=== PATIENT | female | born 1970 | race Caucasian/White ===

== ENCOUNTER → 2023-12-01 15:33 | Outpatient (BNVA) | payer BC, SELFPAY | PROVIDERS: Visit Provider Internal Medicine Nephrology ==

== ENCOUNTER 2024-11-29 15:48 | Outpatient (AMB) | payer BC, SELFPAY ==
--- NOTE | 2024-11-29 16:01 | HO.NEPHOV_ITS ---
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 Ever since her medications have been optimized, her blood pressure has been at goal. She does not have any flank pain, urinary symptoms, pedal edema or hematuria. She does not have any headache, visual disturbances, chest pressure, shortness of breath, orthostatic symptoms. She does not take any [id number]-[id number] anti-inflammatories. She is compliant with her medications. She maintains good hydration. She has not lost any significant weight. There were no new active complaints at the time of this office visit. [facility] Medical History (Updated 12/02/23 @ 06:52 by Lv Cannon MD) Hypertension Family History Mother Hypertension Social History Alcohol intake: never Patient Tobacco Use Status: Never used Tobacco Review of Systems Const All systems reviewed & are unremarkable except as noted in HPI and below Physical Exam Vital Signs: Last Vital Signs Pulse 73 11/29/24 16:03 BP 130/80 11/29/24 16:03 Pulse Ox 98 11/29/24 16:03 Oxygen Delivery Method Room Air 11/29/24 16:03 BMI result Body Mass Index 35.6 Const General: comfortable and no acute distress Orientation/consciousness: patient oriented x3 HEENT Head: Yes normocephalic Mouth: Normal oral and palatal mucosa present Eyes EOM: EOMs intact bilaterally Neck Neck: Yes supple Resp Auscultation: clear to auscultation bilaterally Cardio Jugular venous distension: no JVD Rate: regular rate GI Palpation (GI): Soft to palpation Auscultation: normal bowel sounds General: Yes no CVA tenderness Back/Spine/Pelvis Back: no CVA tenderness Skin General skin exam: no rashes or lesions noted Neuro General: patient oriented x3 and moves all extremities Extrem General: Yes no pedal edema Results Reviewed Nephrology Results: No Data to Display Assessment & Plan Assessment & Plan (1) Renal artery stenosis: Code(s): I70.1 - Atherosclerosis of renal artery Category: Medical (2) Hypertension: Code(s): I10 - Essential (primary) hypertension Category: Medical Qualifiers: Hypertension type: renovascular hypertension Qualified Code(s): I15.0 - Renovascular hypertension Plan Kiki is known to have hypertension from renovascular etiology. Her blood pressure has been at goal ever since medications have been optimized. She has not lost any significant weight. She has not known to have any renal dysfunction or proteinuria. She has no orthostasis. She maintains good hydration. She is quite active. I ordered follow-up blood work and urine studies. I intend to do a Doppler of her renal arteries with time in follow-up. She will need a lipid profile checked. I answered all questions. Follow-up appointment given. Orders: Orders Blood Urea Nitrogen 1 Year I15.0 - Renovascular hypertension, I70.1 - A therosclerosis of renal artery Electrolytes 1 Year I15.0 - Renovascular hypertension, I70.1 - Atherosclerosis of renal artery Creatinine 1 Year I15.0 - Renovascular hypertension, I70.1 - Atherosclerosis of renal artery Protein Creatinine Ratio, Ur 1 Year I15.0 - Renovascular hypertension, I70.1 - Atherosclerosis of renal artery Coding Level of Care Code Est Pt Level 4 (01257) Diagnoses Renal artery stenosis I70.1 Renovascular hypertension I15.0 Hypertension type: renovascular hypertension
[2024-11-29 16:03] VITALS: BP 130/80; PULSE 73; O2SAT 98; BMI 35.6
--- OUTSIDE RECORDS SUMMARY | 2024-11-29 18:10 | XMS_ITS | Clinical Summary ---
Author Organization [facility] Address [address] [place] [address] Phone Care Team Providers Care Inspector Bicycle Name Role Phone Rissa Sahni Primary Care Provider [phone] Allergies No known active allergies Medications ALPRAZolam (XANAX) 0.25 MG tablet Take 1 tablet by mouth 3 (three) times a day Active fluticasone (FLONASE) 50 MCG/ACT nasal spray Active metoprolol tartrate 25 MG tablet Take 1 tablet (25 mg total) by mouth in the morning and 1 tablet (25 mg total) in the evening. 180 tablet 3 03/29/2023 Active hydroCHLOROthia zide 25 MG tablet Take 1 tablet (25 mg total) by mouth 1 (one) time each day 90 tablet 3 03/29/2023 Active losartan (COZAAR) 50 MG tablet Take 1 tablet (50 mg total) by mouth in the morning and 1 tablet (50 mg total) in the evening. 360 tablet 3 03/29/2023 5 Active Active Problems Problem Noted Date Diagnosed Date Hypertension 01/29/2021 Hypertensive disorder 12/19/2020 Stenosis of right renal artery 12/19/2020 Family History Medical History Relation Comments Hypertension Mother Relation Status Comments Father Alive Mother Alive Social History Tobacco Use Types Packs/Day Years Used Date Smoking Tobacco: Never Smokeless Tobacco: Never Tobacco Cessation:Counseling Given: Not Answered Alcohol Use Standard Drinks/Week Comments No 0 (1 standard drink = 0.6 oz pur e alcohol) Comments Unknown Sex and Gender Information Value Date Recorded Sex Assigned at Not on file Legal Sex Female 4:51 PM EST Gender Identity Not on file Sexual Orientation Not on file Last Filed Vital Signs Vital Sign Reading Time Taken Comments Blood Pressure 130/80 11/18/2022 1:03 PM EDT Pulse 65 11/18/2022 1:03 PM EDT Temperature - - Respiratory Rate - - Oxygen Saturation 98% 01/29/2021 2:51 PM EDT Inhaled Oxygen Concentration - - Weight 99.2 kg (218 lb 9.6 oz) 11/18/2022 1:03 P M EDT Height 166.4 cm (5' 5.5 ) 12/22/2019 12:00 PM ED T Body Mass Index 35.82 12/22/2019 12:00 PM EDT Plan of Treatment Health Maintenance Due Date Last Done Comments Breast Cancer Screening 1970 Hepatitis B Vaccine (1 of 3 - 19+ 3-dose series) 01/03 Pneumococcal Vaccine: 50+ Years (1 of 2 - PCV) 991 Colorectal Cancer Screening: Annual FOBT 01/03/2021 Colorectal Cancer Screening: Colonoscopy 01/03/2021 Colorectal Cancer Screening: Sigmoidoscopy 01/03/2021 Influenza Vaccine (Season Ended) 2025 Insurance [facility] Care Teams Inspector Bicycle Relationship Specialty Start Date End Date Rissa Sahni DO PCP - General 08/26/20
--- OUTSIDE RECORDS SUMMARY | 2024-11-29 18:10 | XMS_ITS | Data Portability ---
Author Organization [facility], [facility] Address [address] [place] [address] Care Team Providers Care Repair Service Dispatcher Name Role Phone [facility] OTHER RAYMOND ADEN Diagnostic Radiologist [employer] [place] Financial Reporting Manager Assessment Encounter Date Assessment Date Assessment LastModified by Organization Details LastModified Time 09/04/2020 09/04/2020 Patient agreed t o this visit via a secure telehealth platform due to the COVID -19 pandemic. Patient understands this is a scheduled visit and the usual procedures with regard to billing and confidentiality apply. Patient was notified that the provider location is home Patient location: home During the visit the patient? s medical history and medical record were reviewed. The patient was notified to call our office for worsening or urgent symptoms. The care for this patient today involved the following: I have reviewed, collected, and updated relevant history and performed a physical exam. An independent historian was used to obtain history N. My assessment of Social Determinants of health: not at risk. At risk due to . My care of this patient involved: moderate Assessment of problems. moderate Review of data moderate Complexity of risk from disease or treatments Below is my assessment and plan for this patient? s care today. marilyn Not available 09/08/2020 16:17:12 01/21/2023 01/21/2023 Patient agreed t o this visit via phone or secure telehealth platform. Patient understands this is a scheduled visit and the usual procedures with regard to billing and confidentiality apply. Patient was notified that the provider location is home Patient location: home During the visit the patient? s medical history and medical record were reviewed. The patient was notified to call our office for worsening or urgent symptoms. Not available 01/21/2023 09:19:50 03/25/2023 03/25/2023 Patient agreed t o this visit via a secure telehealth platform. Patient understands this is a scheduled visit and the usual procedures with regard to billing and confidentiality apply. Patient was notified that the provider location is home Patient location: home During the visit the patient? s medical history and medical record were reviewed. The patient was notified to call our office for worsening or urgent symptoms. Not available 03/25/2023 08:57:00 Plan of Treatment Reminders Order Date Submit Date Provider Last Modified By Organization Details Last Modified Time Details Appointments None recorded. Lab pap, LB + HPV - if HPV positive reflex to HPV subtyping 2020 021 [facility] (Pathology), [address] [facility], [place], [address], 17:15:15 Referral occupation al therapist referral - L wrist pain 2020 021 [email or web address] Not available 15:44:13 Procedures colonoscop y procedure (PROC) [email or web address] [place] [address] G[address], [address] [place], [address], 3 15:20:22 Surgeries None recorded. Imaging MAMMO, screening, tomosynthe sis, bilateral 2022 023 [facility] (Imaging), [address], [place], [address], 4 13:13:35 Medication Orders hydrochlor othiazide 25 mg tablet 2022 023 [facility], [place], [address], 3 08:57:06 losartan 50 mg tablet 2022 023 [facility], [facility], [place], [address], 3 08:57:04 metoprolol tartrate 25 mg tablet 2022 023 [facility], [facility], [place], [address], 3 08:57:04 albuterol sulfate HFA 90 mcg/actuat ion aerosol inhaler 2022 023 [id number], [address] [place], [address], 3 09:10:34 escitalopr am 10 mg tablet 2022 023 [id number], [address] [place], [address], 3 09:19:27 losartan 100 mg tablet 2020 021 [facility]_ [id number] [address] [place], [address], 1 09:35:23 Patient TargetsNo targets recorded. Patient Instructions Encounter Date Encounter Id Patient Instructions Last Modified By Organization Details Last Modified Time 03/25/2021 [id number] Well Visit, Ages 18 to 65: Care Instructions marilyn Not available 03/25/2021 09:18:18 12/23/2022 [id number] well visit, women 50 to 65: care instructions Not available 12/23/2022 14:39:40 Reason for Referral Occupational Therapist Refer ral for Pain of left wrist L wrist pain Referring Physician: Paula Dickerson, Family Medicine, Encounter Date: 03/25/2021 Results Created Date Observation Date Name Description Value Unit Range Abnormal Flag Note LastModifiedBy Organization Detail LastModifiedTime 01/17/20 21 01/16/2021 renal funct ion panel , serum sodium 136 mmol/ L 133-14 6 Not Available [facility] (Outpatient) [address] [place], [address], 01/16/2021 19:17:52 01/17/20 21 01/16/2021 renal funct ion panel , serum potassium 4.1 mmol/ L 3.3-5. 1 Not Available [facility] [address] [place], [address], 01/16/2021 19:17:52 01/17/20 21 01/16/2021 renal funct ion panel , serum chloride 99 mmol/ L 96-108 Not Available [facility] [address] [place], [address], 01/16/2021 19:17:52 01/17/20 21 01/16/2021 renal funct ion panel , serum CO2 26 mmol/ L 21-35 Not Available [facility] ([facility]) [address] [place], [address], 01/16/2021 19:17:52 01/17/20 21 01/16/2021 renal funct ion panel , serum glucose 85 mg/dL 70-99 Not Available [facility] [address] [place], [address], 01/16/2021 19:17:52 01/17/20 21 01/16/2021 renal funct ion panel , serum BUN 12 mg/dL 6-19 Not Available [facility] [address] [place], [address], 01/16/2021 19:17:52 01/17/20 21 01/16/2021 renal funct ion panel , serum creatinine 0.70 mg/dL 0.5-1. 5 Not Available [facility] ([facility] [address] [place], [address], 01/16/2021 19:17:52 01/17/20 21 01/16/2021 renal funct ion panel , serum calcium 10.0 mg/dL 8.4-10 .3 Not Available [facility]) [address] [place] [address], [address], 01/16/2021 19:17:52 01/17/20 21 01/16/2021 renal funct ion panel , serum phosphorus 2.9 mg/dL 2.7-4. 5 Not Available [facility]) [address] [place] [address], [address], 01/16/2021 19:17:52 01/17/20 21 01/16/2021 renal funct ion panel , serum albumin 4.3 g/dL 3.9-4. 8 Not Available [facility] [address] [place] [address], [address], 01/16/2021 19:17:52 01/17/20 21 01/16/2021 renal funct ion panel , serum eGFR 102 mL/mi n/1.7 3m2 >59 Estim ated glome rular filtr ation rate calcu lated using the CKD-E PI equat ion. Not Available [facility]) [address] [place] [address], [address], 01/16/2021 19:17:52 01/17/20 21 01/16/2021 renal funct ion panel , serum anion gap 15 mmol/ L 10-20 Not Available [facility]) [address] [place] [address], [address], 01/16/2021 19:17:52 01/17/20 21 01/16/2021 prote in:cr eatin ine ratio , urine urine total protein 4.2 mg/dL Not Available [facility] [address] [place] [address], [address], 01/16/2021 19:28:12 01/17/20 21 01/16/2021 prote in:cr eatin ine ratio , urine urine creatinine 43 mg/dL Not Available [facility] (Out[facility]) [address] [place], [address], 01/16/2021 19:28:12 01/17/20 21 01/16/2021 prote in:cr eatin ine ratio , urine urine TP cre ratio 0.10 0-0.19 Not Available [facility] [address] [place], [address], 01/16/2021 19:28:12 03/25/20 21 03/28/2021 PAP SMEAR path report [facility] [address] [place] [address] Lab Direc tor: Ave reid MD GROUP CONTROLLER Cytol ogy Repor t Acces walter #: [id number] FINAL DIAGN OSIS A. PAP SMEAR (SURE PATH) CE: SPECI MEN ADEQU ACY: Satis facto ry for evalu ation ; trans forma tion zone absen t/ins uffic ient. Evalu ation limit ed by thick ness of cellu lar speci men. INTER PRETA TION: NEGAT ANTHONY FOR INTRA EPITH ELIAL LESIO N OR GHAZALA WILKINS . Elect marimar singh Erin d Out By: Ave reid MD By his/h er signterell rubalcava above , the patho logis t liste d as hilda angeles the Final Diagn osis certi fies that he/sh e has perso alice revie wed this case and confi rmed or corre cted the diagn osis. The Pap test is a scree david test prima rily for squam ous cance rs and precu rsors and has assoc iated false -nega tive and false -posi tive resul ts. New techn ologi es such as liqui d-bas ed prepa ratio ns may decre ase but will not elimi rebecca all false -nega tive resul ts. Regul ar sampl ing and follo w-up of unexp barbie d clini fernanda signs and sympt oms are recom foreign d to minim ize false negat anthony resul ts. PROCE DURES /ADDE NDA HPV Testi ng (Requ ested ) Order ed Date: 2020 A. PAP SMEAR (SURE PATH) CE: Human Papil sae Virus Test Negat anthony for high- risk human papil lomav irus types 16, 18, 45 and the Othe r high risk probe set (Incl udes 31, 33, 35, 39, 51, 52, 56, 58, 59, 66, 68) by Poly ventura HR-HP V buffy sis. Clini fernanda corre latio n is advis ed. This HPV test was perfo rmed at [facility], [address] [facility]. This test has been FDA appro efrain for SureP ath cervi fernanda cytol ogy speci mens. The accur acy and preci walter of this test for all other speci men sourc es has been verif ied in the Cytop athol ogy Labor atory of the [facility] and has not been clear ed or appro efrain by the U.S. Food and Drug Admin istra tion. Clini fernanda corre latio n is advis ed. Alda ctron icall y Erin d Out By: Bruna Orr [facility]M Cata on 2020 07:15 CLINI FERNANDA HISTO RY Date of Last Menst rual Perio d: Not Provi ded Menst rual Histo ry: Unkno wn Contr acept anthony Histo ry: Miren a Other Clini fernanda Condi tions : Scree david Pap SPECI MEN SOURC E A: PAP SMEAR (SURE PATH) CE Patie nt Name: CRISTOBAL STALEY : 1969 (Age: 51) Sex: F 7 Insti tutio n: [facility] Locat ion: [facility] Date of Colle ction : 2020 Date of Acces walter: 2020 Repor bobby: 2020 17:12 Resul ts to: Paula Oneil hneid er DIVER PUMPER Not Available [facility]) [address], [place], [address], 03/28/2021 17:15:15 11/17/19 23 11/16/2022 CBC WBC 11.72 K/uL 4.00-1 1.00 high Not Available [facility] [address] [place], [address], 11/16/2022 19:13:00 11/17/19 23 11/16/2022 CBC RBC 4.95 M/uL 3.72-5 .30 Not Available [facility] [address] [place], [address], 11/16/2022 19:13:00 11/17/1911/16/2022 CBC HGB 14.4 g/dL 10.6-1 5.5 Not Available [facility]) [address] [place] [address], [address], 11/16/2022 19:13:00 11/17/19 23 11/16/2022 CBC HCT 42.1 % 32.0-4 5.0 Not Available [facility]) [address] [place] [address], [address], 11/16/2022 19:13:00 11/17/19 23 11/16/2022 CBC plt 367 K/uL 140-43 0 Not Available [facility] [address] [place], [address], 11/16/2022 19:13:00 11/17/1911/16/2022 CBC MCV 85.1 fL 78.0-9 7.0 Not Available [facility]) [address] [place] [address], [address], 11/16/2022 19:13:00 11/17/19 23 11/16/2022 CBC MCH 29.1 pg 25.0-3 3.0 Not Available [facility] [address] [place], [address], 11/16/2022 19:13:00 11/17/19 23 11/16/2022 CBC MCHC 34.2 g/dL 32.0-3 6.0 Not Available [facility] [address] [place], [address], 11/16/2022 19:13:00 11/17/19 23 11/16/2022 CBC RDW 13.3 % 11.0-1 6.0 Not Available [facility] [address] [place], [address], 11/16/2022 19:13:00 11/17/19 23 11/16/2022 CBC MPV 10.4 fL 8.4-12 .8 Not Available [facility] [address] [place], [address], 11/16/2022 19:13:00 11/17/19 23 11/16/2022 RENAL PANEL sodium 136 mmol/ L 133-14 6 Not Available [facility] [address] [place], [address], 11/16/2022 20:18:57 11/17/19 23 11/16/2022 RENAL PANEL potassium 3.6 mmol/ L 3.3-5. 1 Not Available [facility] [address] [place], [address], 11/16/2022 20:18:57 11/17/19 23 11/16/2022 RENAL PANEL chloride 100 mmol/ L 96-108 Not Available [facility] [address] [place], [address], 11/16/2022 20:18:57 11/17/19 23 11/16/2022 RENAL PANEL CO2 25 mmol/ L 21-35 Not Available [facility] [address] [place], [address], 11/16/2022 20:18:57 11/17/19 23 11/16/2022 RENAL PANEL glucose 90 mg/dL 70-99 Not Available [facility] [address] [place], [address], 11/16/2022 20:18:57 11/17/19 23 11/16/2022 RENAL PANEL BUN 13 mg/dL 6-19 Not Available [facility] [address] [place], [address], 11/16/2022 20:18:57 11/17/19 23 11/16/2022 RENAL PANEL creatinine 0.80 mg/dL 0.5-1. 5 Not Available [facility] ([facility]) [address] [place] [address], [address], 11/16/2022 20:18:57 11/17/19 23 11/16/2022 RENAL PANEL calcium 9.5 mg/dL 8.4-10 .3 Not Available [facility] [address] [place], [address], 11/16/2022 20:18:57 11/17/19 23 11/16/2022 RENAL PANEL phosphorus 2.6 mg/dL 2.7-4. 5 low Not Available [facility] ([facility]) [address] [place] [address], [address], 11/16/2022 20:18:57 11/17/19 23 11/16/2022 RENAL PANEL albumin 4.3 g/dL 3.9-4. 8 Not Available [facility] ([facility]) [address] [place] [address], [address], 11/16/2022 20:18:57 11/17/19 23 11/16/2022 RENAL PANEL eGFR 90 mL/mi n/1.7 3m2 >59 Estim ated glome rular filtr ation rate calcu lated using the CKD-E PI refit equat ion. Not Available [facility] ([facility]) [address] [place], [address], 11/16/2022 20:18:57 11/17/19 23 11/16/2022 RENAL PANEL anion gap 15 mmol/ L 10-20 Not Available [facility] [address] [place], [address], 11/16/2022 20:18:57 11/17/19 23 11/16/2022 TSH TSH 2.15 uIU/m L 0.27-4 .20 Not Available [facility]) [address] [place] [address], [address], 11/16/2022 20:18:58 11/17/19 23 11/16/2022 25-OH VITAM IN D 25 oh vit D (total) 40 NG/mL 30-60 Not Available [facility]) [address] [place] [address], [address], 11/16/2022 20:41:45 Result Notes None recorded. Problems Name Problem SNOMED Code Status Onset Date Resolution Date Notes Provider Name and Address Organization Details Recorded Time Elevated blood-pre ssure reading without diagnosis of hypertens ion 315054366 Completed 02/28/2016 Sara Landaverde NP [address] [place] [address], [phone] , [facility] 6 16:09:51 Obesity 339659251 Completed 02/28/2016 Sara Landaverde NP [address] [place] [address], [address] , [facility] 7 15:23:40 Impaired fasting glycemia 879570815 Completed 02/28/2016 Sara Landaverde NP [address] [place] [address], [phone] , [facility] 6 16:09:56 Overweigh t 438564997 Completed 201503/03/2017 Sara Landaverde NP [address] [place] [address], [address] , [facility] 7 15:23:50 Obesity 278067463 Active 2016 Sara Landaverde NP [address] [place] [address], , [facility] 7 15:23:40 Anxiety 24172540 Active 2016 Sara Landaverde NP [address] [place], [address] , [facility] 7 15:23:44 Migraine 38895048 Active 2016 Sara Landaverde NP [address] [place] [address], [address] , [facility] 7 15:28:00 Motion sickness 57121980 Active 2016 Sara Landaverde NP [address] [place] [address], [address] , [facility] 7 15:31:46 Benign essential hypertens ion 6360406 Active 2017 Sara Landaverde NP [address] [place] [address], [address] , [facility] 8 14:26:23 Renal artery stenosis 395500867 Active 2017 Sara Landaverde NP [address] [place] [address], [address] , [facility] 8 10:45:58 Reactive airway disease 45008980151 6 Active 2022 Macarena Felipe PA-C [address] [place] [address], [address] , [facility] 3 09:19:38 Celluliti s and abscess of face 918469308 Completed 06/10/2011 Not Available [facility] 3 03:05:02 Seborrhei c dermatiti s 87537346 Completed 200006/10/2011 Not Available [facility] 3 03:05:02 Intrinsic asthma 380297344 Completed 02/28/2016 Sara Landaverde NP [address] [place] [address], [address] , [facility] 6 16:09:43 Acne 27772154 Completed 200006/10/2011 Not Available [facility] 3 03:05:02 Amenorrhe a 17360414 Completed 200806/10/2011 Not Available [facility] 3 03:05:02 Cough 92544741 Completed 06/04/2010 Not Available [facility] 3 03:05:02 Cat scratch disease 78140376 Completed 06/10/2011 Not Available [facility] 3 03:05:02 Knee pain Completed 200106/10/2011 Not Available [facility] 3 03:05:02 Problem Notes None recorded. Procedures Surgical History Date Name Laterality Status Provider Name and Address Organization Details Recorded Time 1 prevention-card iovascular risk reduction counseling completed Hossein Castellanos [facility] 03/25/2021 08:49:32 1 prevention-umer al alcohol misuse screening completed Hossein Castellanos [facility] 03/25/2021 08:49:32 0 prevention-card iovascular risk reduction counseling completed Giovani Huggins [facility] 03/15/2020 11:39:41 0 prevention-umer al alcohol misuse screening completed Giovani Huggins [facility] 03/15/2020 11:39:41 5 Asthma Control Test (12 + years old) completed Ember Newman LPN [facility] 02/25/2015 15:23:28 4 Asthma Control Test (12 + years old) completed Ember Newman LPN [facility] 02/23/2014 15:36:20 3 Asthma Control Test (12 + years old) completed Kate Ferreira [facility] 10/03/2012 15:47:37 Imaging Results None recorded. Procedure Notes None recorded. Medical Equipment None Reported. Allergies No known drug allergies Medications Name Sig Start Date Stop Date Status Note LastModified by Organization Details LastModified Time losartan 50 mg tablet TAKE 1 TABLET TWICE A DAY active Not Available Not Available No t Available amoxicill in 500 mg capsule Take 1 capsule 3 times a day by oral route for 10 days. 02/27 completed Not Available Not Available Not Available azithromy bella 250 mg tablet Take 2 tablets (500 mg) by oral route once daily for 1 day then 1 tablet (250 mg) by oral route once daily for 4 days 08/28 completed Not Available Not Available Not Available sumatript an 50 mg tablet Take one tablet at onset of SHAW, may repeat in 2 hours PRN 2011 active Not Available Not Available Not Avai lable alprazola m 0.25 mg tablet Take 1 tablet 3 times a day by oral route as needed. 12/24 completed per visit summary received 11/18/22 Not Available Not Available Not Available clindamyc in 1 % topical gel APPLY A THIN LAYER TO THE AFFECTED AREA(S) BY TOPICAL ROUTE 2 TIMES PER DAY 02/17 completed Not Available Not Available Not Available losartan 25 mg tablet Take 1 tablet every day by oral route for 90 days. 09/08 completed Not Available Not Available Not Available metoprolo l tartrate 50 mg tablet Take 1 tablet twice a day by oral route. 09/07 completed Not Available Not Available Not Available omeprazol e 20 mg capsule,d elayed release Take 1 capsule every day by oral route. 2009 active Not Available Not Available Not Avai lable codeine 10 mg-guaife nesin 100 mg/5 mL oral liquid Take 10 mL every 4 hours by oral route. 2008 active Not Available Not Available Not Avai lable hydrochlo rothiazid e 25 mg tablet TAKE 1 TABLET DAILY active Not Available Not Available No t Available albuterol sulfate HFA 90 mcg/actua tion aerosol inhaler Inhale 2 puffs every 4 hours by inhalati on route as needed. 2022 active Not Available Not Available Not Avai lable Percocet 5 mg-325 mg tablet Take 1-2 tablet by oral route every 6 hours as needed 2009 active Not Available Not Available Not Avai lable fluticaso ne propionat e 50 mcg/actua tion nasal spray,marin pension [place] 1 spray every day by intranas al route. 2017 active Buys OTC 12/23/22m h Not Available Not Available Not Available Flexeril 10 mg tablet Take 1 tablet twice a day by oral route for 7 days. 05/01 completed Not Available Not Available Not Available Irene 0.35 mg tablet 11/30 completed Take 1.00 tabs daily Not Available Not Available Not Available metoprolo l tartrate 25 mg tablet TAKE 1 TABLET TWICE A DAY active Not Available Not Available No t Available Benadryl 25 mg po hs 09/07 completed Not Available Not Available Not Available Mirena 2015 active Not Available Not Available Not Avai lable metoprolo l tartrate 37.5 mg tablet Take 1 tablet twice a day by oral route. 2021 active per nephrolo gy note 03/11/22p er visit; 25mg in AM, 25mg PM per pt 03/25/23 JM Not Available Not Available Not Available Vitals Date Recorded Body height Body mass index (BMI) Body weight Heart rate Systolic blood pressure Diastolic blood pressure Provider Name and Address Organization Details Last Updated DateTime 1 167.64 cm 35 kg/m2 23095.5 4 g 64 /min 127 mm[Hg] 93 mm[Hg] [facility] 09[facility]35 Date Recorded Body height Body mass index (BMI) Body weight Oxygen saturation Oxygen saturation in Arterial blood by Pulse oximetry Heart rate Systolic blood pressure Diastolic blood pressure Provider Name and Address Organization Details Last Updated DateTime 1 167.64 cm 34.9 kg/m2 27751.9 5 g 98 % 98 % 63 /min 124 mm[Hg] 82 mm[Hg] Hossein Castellanos [facility] 1 08:59:51 Date Recorded Body weight Body mass index (BMI) Body height Heart rate Oxygen saturation Oxygen saturation in Arterial blood by Pulse oximetry Systolic blood pressure Diastolic blood pressure Provider Name and Address Organization Details Last Updated DateTime 3 294114. 61 g 35.9 kg/m2 167.64 cm 69 /min 98 % 98 % 130 mm[Hg] 84 mm[Hg] Daniela Arechiga [facility] 3 14:11:28 Date Recorded Systolic blood pressure Diastolic blood pressure Provider Name and Address Organization Details Last Updated DateTime 12/23/2022 122 mm[Hg] 78 mm[Hg] Macarena Felipe PA-C [address] [place] [address], [phone], [facility] 12/23/2022 14:44:48 Date Recorded Systolic blood pressure Diastolic blood pressure Provider Name and Address Organization Details Last Updated DateTime 12/01/2023 120 mm[Hg] 80 mm[Hg] Kelsy Stover [facility] 07/05/2024 15:24:13 Social History Question Answer Notes LastModified by Organizat ion Details LastModified Time Tobacco Smoking Status Never Smoker 03/25/23 SEAN John MA [facility], [facility] 03/25/2023 08:43:45 Do You Have An Advance Directive? No Given Forms 09/23/2011. [email or web address] Information not available 06/05/2010 What Is Your Level Of Alcohol Consumption? None Zero Alcohol 03/25/23 SEAN [email or web address] Information not available 03/25/2023 What Is Your Level Of Caffeine Consumption? Moderate Cup Of Coffee Daily 12/23/22 [email or web address] Information not available 12/23/2022 How Much Tobacco Do You Chew? None Does [email or web address] Information not available 08/18/2010 What Type Of Diet Are You Following? REGULAR Weight Watchers [email or web address] Information not available 08/18/2010 Which Illicit Or Recreational Drugs Have You Used? 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 No Information not available 12/23/2022 How Many Days In The Past Year Have You Had A Heavy Drinking Consumption (4+ Female, 5+ Male)? 0 [email or web address] Information not available 02/25/2015 Are There Any Guns Present In Your Home? Yes [id number] Information n ot available 07/02/2011 Do You Use Insect Repellent Routinely? No Information not available 12/23/2022 Live Alone Or With Others? With Others [email or web address] Information not available 03/15/2020 Patient Has Health Care Proxy Signed And In Chart No [email or web address] Information not available 09/28/2012 Marital Status In formation not available 07/02/2011 What Was The Date Of Your Most Recent Tobacco Screening? 03/25/2023 03/25/23 [email or web address] Information not available 03/25/2023 How Many Children Do You Have? 0 Information n ot available 07/02/2011 Do You Use Your Seat Belt Or Car Seat Routinely? Yes [email or web address] Information not available 12/23/2022 Seat Belts Used Routinely Yes Information n ot available 07/02/2011 Are You Sexually Active? Yes Information n ot available 07/02/2011 Smoke Alarm In Home Yes Information n ot available 07/02/2011 Do You Have Smoke And Carbon Monoxide Detectors In Your Home? Yes [email or web address] Information not available 12/23/2022 Are You Passively Exposed To Smoke? No [email or web address] Information not available 12/23/2022 What Types Of Sporting Activities Do You Participate In? Golf Kayaking [email or web address] Information not available 08/18/2010 General Stress Level Medium [email or web address] Information not available 03/15/2020 Do You Use Any Illicit Or Recreational Drugs? No [email or web address] Information not available 12/23/2022 Do You Use Sunscreen Routinely? Yes Information n ot available 07/02/2011 Sex: Unknown Functional Status None recorded. Mental Status None recorded. Family History Relationship Description Onset Age of this Age Resolved Age Notes LastModified by Organization Details LastModified Time Father Hypertensive disorder glory Not available 02/25 15:54:24 Unspecified Relation Type 1 diabetes mellitus 7 nephew glory Not available 02/27 16:07:44 Maternal Uncle Malignant tumor of lung non-sm oker Not available 12/23/2022 14:24:35 Notes:Father: glaucoma (trau ma induced), HTN Mother: HTN and hyperlipidemia Medical History Condition Response Migraine Headaches Y Asthma Y Gynecological History Statement/Question Response History of Abnormal Pap N Current Control Method IUD Obstetrics History GPAL:G 0 P 0 0 0 0 Immunizations Vaccine Type Date Status Note Provider Nam e and Address Organization Details Recorded Time Tdap 8 completed Not Available [facility] 11/18/2022 13:20:43 Td(adult) unspecified formulation 1 completed Not Available [facility] 11/18/2022 13:20:43 MMR 8 completed Not Available [facility] 11/18/2022 13:20:43 influenza, unspecified formulation 8 completed Not Available [facility] 11/18/2022 13:20:43 influenza, unspecified formulation 0 completed Not Available [facility] 11/18/2022 13:20:43 influenza, unspecified formulation 1 completed Not Available [facility] 11/18/2022 13:20:43 Influenza, split virus, quadrivalent, PF 8 completed Not Available [facility] 09/02/2019 02:22:31 Influenza, split virus, quadrivalent, PF 9 completed Not Available [facility] 09/02/2019 02:36:31 Td (adult), 5 Lf tetanus toxoid, preservative free, adsorbed 8 completed Not Available [facility] 11/18/2022 13:20:43 Influenza, split virus, quadrivalent, PF 0 [facility] 15:46:13 COVID-19 vaccine, vector-nr, rS-Ad26, PF, 0.5 mL 1 completed Not Available [facility] 11/18/2022 13:20:43 COVID-19, mRNA, LNP-S, PF, 100 mcg/0.5mL dose or 50 mcg/0.25mL dose 2 completed Not Available [facility] 11/18/2022 13:20:43 SARS-COV-2 (COVID-19) vaccine, UNSPECIFIED 3 [facility] 11:37:02 influenza, unspecified formulation 3 completed HOLA Neal, [facility] 06/08/2023 11:37:31 zoster recombinant 3 [facility] 11:37:45 Past Encounters Encounter ID Performer Location Encounter Start Date Encounter Closed Date Diagnosis/Indication Diagnosis SNOMED-CT Code Diagnosis ICD10 Code Diagnosis Note [id number] [facility] [address] [place] [address] 09/07/2000 12:00:00 09/05/2008 02:02:29 [id number] [facility] [address] [place] [address] 12/14/2000 17:30:00 09/05/2008 02:02:29 [id number] [facility] [address] [place] [address] 05/23/2001 15:00:00 09/05/2008 02:02:29 [id number] [facility] [address] [place] [address] 1 02/02/2002 15:01:55 09/05/2008 02:02:29 [id number] [facility] [address] [place] [address] 05/11/2002 11:56:02 09/05/2008 02:02:29 [id number] [facility] [place] [address] [place] [address] 05/11/2002 11:31:22 09/05/2008 02:02:29 [id number] [facility] [address] [place] [address] 1 02/03/2008 15:55:31 09/05/2008 02:02:29 [id number] [facility] [address] [place] [address] 1 11/16/2008 09:18:45 11/19/2008 08:21:52 [id number] [facility] [address] [place] [address] 1 11/30/2008 16:31:32 12/03/2008 09:46:00 [id number] [facility] [address] [place] [address] 1 01/31/2010 11:23:43 01/31/2010 13:51:35 [id number] [facility] [address] [place] [address] 1 04/24/2010 08:56:44 04/24/2010 10:14:[id number] [place] [address] 1 06/05/2010 09:06:16 06/05/2010 10:17:[id number] [place] [address] 1 08/18/2010 07:53:06 08/18/2010 10:19:[id number] [place] [address] 1 08/28/2010 09:36:33 08/28/2010 11:23:[id number] [place] [address] 06/10/2011 16:23:06 06/11/2011 08:25:56 [id number] Ember Newman LPN [address] [place] [address] 09/23/2011 15:03:12 09/23/2011 16:08:56 [id number] Radiology , [address] [place] [address] 02/10/2012 15:54:53 02/11/2012 10:54:38 [id number] Sara Landaverde NP [address] [place] [address] 1 10/03/2012 15:03:35 10/03/2012 16:16:[id number] [place] [address] 02/23/2014 15:03:46 02/23/2014 16:06:17 Intrinsic asthma [id number] INTERMITTE NT Asthma- Based on history, physical assessment and peak flow the patients asthma is in control. Will continue the present medication s and follow-up in 6 months. The asthma action plan has been discussed. The patient verbalizes understand ing medication use.. The patient is in agreement with this plan. Adult heal th examination 890805274 see Risk Assessment and Lifestyle Change Counseling section above Overweight 201602469 Enc ouraged to try Weight Watchers and increase exercise. Sacroiliac disorder [id number] Followed by chiropract or [id number] [facility] [place] [address] [place] [address] 02/25/2015 14:45:17 02/25/2015 15:59:09 Intrinsic asthma [id number] INTERMITTE NT Asthma- Based on history, physical assessment and peak flow the patients asthma is in control. Will continue the present medication s and follow-up in 6 months. The asthma action plan has been discussed. The patient verbalizes understand ing medication use.. The patient is in agreement with this plan. Adult [facility] th examination [id number] see Risk Assessment and Lifestyle Change Counseling section above Obesity 327605106 Elevated blood-pressure reading without diagnosis of hypertension 414426118 Impaired f asting glycemia 986551884 Cystic acne 48894545 Screening for malignant neoplasm of cervix 822757554 [id number] [place] Caputo, [facility] [place] [address] [place] [address] 02/18/2016 14:29:26 02/18/2016 15:16:28 Acute upper respiratory infection 57384930 J06.9 Educated patient that URI is a viral illness of the upper airways. It is not bacterial and does not benefit from antibiotic s. Average duration of URI is 7-10 days but in a recent trial, treatment at 7-10 days of illness with antibiotic s, intranasal steroids, or placebo did not alter natural history at 3 weeks. Recommende d symptomati c treatments including NSAIDS, semi-uprig ht sleep position, antihistam danielle at HS, limited course of nasal sympathomi metics and/or cough syrups, and nasal saline rinses with soft squeeze bottle or Neti pot. Return for fevers > 101 for 3 days, worsening sinus pain, or failure to resolve in 2-4 weeks. Acute pharyngitis 507312 003 J02.9 [id number] Sara Landaverde NP , [facility] [place] [address] [place] [address] 02/28/2016 15:02:25 02/28/2016 15:48:26 Adult health examination 365653387 Z00.00 see Risk Assessment and Lifestyle Change Counseling section above Overweight 145830831 E66 .3 [id number] YURI Garcia, [facility] [place] [address] [place] [address] 03/03/2017 14:54:25 03/04/2017 08:32:09 Adult health examination 014958194 Z00.00 see Risk Assessment and Lifestyle Change Counseling section above Obesity 245476578 E66.9 Anxiety 64897156 F41.9 Migraine 28692056 G43.90 9 Motion sickness 24880043 T75.3XXD [id number] Rissa Sahni D.O. [facility], OFFICE [address] [place] [address] 09/01/2017 10:18:07 09/01/2017 11:00:22 Benign essential hypertension 7848825 I10 Anxiety 80220779 F41.9 [id number] Rissa Sahin D.O. [facility], OFFICE [address] [place] [address] 09/22/2017 10:42:47 09/22/2017 11:28:08 Active or passive immunization 733787956 Z23 Sprain of left wrist 256 4658859 1373338 S63.502A Benign ess ential hypertension 4987098 I10 Renal artery stenosis 30 0765376 I70.1 [id number] Max Hamilton MD , [facility] [place] [address] [place] [address] 03/04/2018 15:09:15 03/04/2018 16:12:46 Benign essential hypertension 7858316 I10 Followed by nephrology . Renal artery stenosis 30 5626167 I70.1 Followed by nephrology . Migraine 03115304 G43.90 9 Improved on beta-block er. Obesity 248301737 E66.9 Continue to work on diet and exercise. Anxiety 74795381 F41.9 Improved by beta-block er. Adult [facility] th examination 886015398 Z00.00 see Risk Assessment and Lifestyle Change Counseling section above Depression screening 171 985856 Z13.89 depression screening tool administer ed, entered into emr, scored and discussed, time greater than 7.5 minutes Screening for malignant neoplasm of cervix 453019515 Z12.4 Allergic rhinitis 935708 04 J30.9 [id number] Mynor Rosas MD , [facility] [place] [address] [place] [address] 09/07/2018 15:42:27 09/07/2018 17:08:41 Benign essential hypertension 8755886 I10 Followed by nephrology . Renal artery stenosis 30 7578683 I70.1 Followed by nephrology . Active or passive immunization 751482530 Z23 Irregular heart beat 361 664475 R00.8 [id number] Rissa Sahni D.O. , [facility] [place] [address] [place] [address] 01/23/2019 14:55:55 01/23/2019 17:47:12 Numbness of face 171183673 R20.0 [id number] Mynor Rosas MD , [facility] [place] [address] [place] [address] 03/08/2019 16:02:36 03/08/2019 17:12:33 Adult health examination 597491030 Z00.00 see Risk Assessment and Lifestyle Change Counseling section above Depression screening 171 225923 Z13.89 depression screening tool administer ed, entered into emr, scored and discussed, time greater than 7.5 minutes Benign ess ential hypertension 7269804 I10 Followed by nephrology . Renal artery stenosis 30 1630925 I70.1 Followed by nephrology . Obesity 908320445 E66.9 Continue to work on diet and exercise. [id number] Maria Esther Ashley . , [facility] [place] [address] [place] [address] 01/25/2020 14:39:57 01/25/2020 16:04:06 Renal artery stenosis 135466524 I70.1 Continues to follow with nephrology Last note from 12/22/2019 stated R sided MORA.Her nephrologi st's goal was to increase losartan over time and decrease metoprolol . Benign ess ential hypertension 7481394 I10 Patient's BPs fluctuatin g this week, also has low-grade temps up to 100F.Offer ed covid testing but patient states she thinks pretty low-risk.F luctuating BPs and temps could indicate underlying infection. Did also mention some diarrhea.S he will continue to monitor BP and temp. She can take Tylenol prn for fevers.Pus h fluids, limit salt intake.Fol low-up in 1 week with this DIVER PUMPER to continue to assess.Rev iewed nephrology notes from December 2019 - he had considered increasing losartan over time, and decreasing metoprolol .If BPs still remain elevated, could consider increasing losartan to 100 mg daily, and decrease metoprolol 25 mg to once daily instead of BID. [id number] Max Hamilton MD , [facility] [place] [address] [place] [address] 01/31/2020 13:33:18 01/31/2020 14:18:37 Benign essential hypertension 8990804 I10 BPs are better now. At goal today.Has f/u labs soon with nephrology . She will email me via patient portal on her upcoming lab work, in case I need to order anything else.F/u at wellness in February 2020. Fever 759101247 R50.9 Fever still waxing and waning.Unc lear etiology. This could possibly be covid. Discussed risks vs benefits of covid testing. She can easily quarantine , works from home, but still goes to workHe will check with his employer to ask what their protocol is and they will reach out if they require a test.In the meantime, monitor her fevers, take Tylenol if needed. Advised continue quarantine until at least three days w/o fever and w/o use of Tylenol. Renal artery stenosis 30 7591607 I70.1 Continues to follow with nephrology Last note from 12/22/2019 stated R sided MORA. [id number] Max Hamilton MD , [facility] [place] [address] [place] [address] 03/15/2020 15:34:23 03/18/2020 16:03:32 Adult health examination 792226012 Z00.00 Patient overall doing well.Carlos nue to follow with therapist for hx of anxietyCon tinues to follow with nephrology for HTN and renal artery stenosis.R epeat fasting labs and renal ultrasound Last mammo 2011, normal. Order repeat mammo.Pap UTD 2017, normal, repeat 2020.Discu ssed healthy diet, exercise.N on-smoker, does not drink - congratula bobby, encouraged to continue.F /u in six months at med mgmt [facility]. Counseling 298499726 Z71 .9 including cardiovasc ular risk reduction counseling Depression screening 171 175929 Z13.89 PHQ-9 score 9 out of 27.Continu es to follow with therapist multiple times per month.depr ession screening tool administer ed, entered into emr, scored and discussed, time greater than 7.5 minutes Screening for alcohol abuse 984692757 Z13.39 Does not drinkAUDIT score 0 out of 9 Essential hypertension 59859455 I10 BP 131/90, [facility] Los[facility] 75 mg daily, HCTZ 25 mg dailyConti nue to work on diet/exerc ise. Surveillan ce of intrauterine device contraception done 8018032592 40137 Z30.40 Has Mirena IUD, due to change next yearPap UTD, repeat 2020 Screening mammography 24 362258 Z12.31 No known family history of breast cancerRepe at mammo Renal artery stenosis 30 3319725 I70.1 Continues to follow with nephrology Last note from 12/22/2019 stated R sided MORA. 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 422920622 I77.3 As above, repeat labs and ultrasound ECHO 2018 normal Hepatitis C screening 41 6871524 Z11.59 Generalize d anxiety disorder 15808087 F41.1 Sees therapist regularlyT akes metoprolol with good effect [id number] Mireya Porter CMA , [facility] [place] [address] [place] [address] 06/13/2020 07:38:28 06/14/2020 09:27:18 Active or passive immunization 786020267 Z23 [id number] Max Hamilton MD , [facility] [place] [address] [place] [address] 09/04/2020 09:53:40 09/09/2020 13:37:37 Essential hypertension 03313341 I10 Not at goal of <130/80 increase losartan to 100 mg daily, continue hctz 25 mg daily and metoprolol 50 mg BID check lab in 2 weeks, BP follwo u in 2-3 weeks to review log Renal artery stenosis 30 6627107 I70.1 R renal artery stenosis followed by Dr Cannon, per last note 12/2019 consider increasing ARB and decreasing betablocke r pt reports betablocke r has helped significan tly with her BP control and her anxiety BP not at goal, diastolic typically in low 90s Increase losartan to 100 mg daily, continue hctz 25 daily and metoprolol 50 bid check labs in 2 weeks Achilles tendinitis 1165 4001 M76.60 Bilat -- continue ice, rest -- provided handout on taping -- if not improving follow up Contraception care 91890 5005 Z30.40 Has Mirena, placed 5.5 years ago. Advised is effective for 6 years Discussed switching to new one vs keeping current IUD and using backup after 6 year point will discuss further next visit Anxiety 53028381 F41.9 Stable continue follow up with therapist every 2 weeks [id number] Maria Esther Ashley . FP, [facility] [place] [address] [place] [address] 03/25/2021 08:48:12 03/25/2021 09:40:15 Adult health examination 812805174 Z00.00 In good healthMamm o 04/02/2020 birads 1, repeat next yearpap todayFIT cards providedla bs orderedrep orts some hearing loss with backtgroun d noise, will monitor, consider audiology testing if not improvingc ounseled on diet and exercise Counseling 630760481 Z71 .9 including cardiovasc ular risk reduction counseling Depression screening 171 879774 Z13.31 depression screening tool administer ed, entered into emr, scored and discussed, time greater than 7.5 minutes Screening for alcohol abuse 975292456 Z13.39 Essential hypertension 33432079 I10 Near goal, now on losartan 50 BID - better toleratedc ontinue losartan 50 bid, metoprolol 50 bid, hctz 25 mg dailylabs stable Screening for malignant neoplasm of cervix 676962033 Z12.4 normal exam Screening for malignant neoplasm of colon 571320459 Z12.11 Anxiety 43004400 F41.9 Stable, did have a panic attack earlier in the year continue follow up with therapist every 2 weeks-- follow up if worsening, recurrent panic attacks Renal artery stenosis 30 0434730 I70.1 R renal artery stenosis followed by nephrology Dr Cannon, last 04/02/2020 stable R RASlabs stablecont inue meds Fatigue 94747273 R53.83 Fatigue over the past year-- check labs Epidermoid cyst 27753164 6 L72.0 1.5 cm epidermoid cyst midline thoracic back, no signs of infection, no painwill monitor, if infection elarging or bothersome follow up Contracept ion care management 919995885 Z30.9 Mirena IUD string visible at os, reports was inserted around 6 years agois 51, reviewed efficacy after 5 years, not advised to keep in longer than 7 at this timewill keep in place for another year, next year will discuss removal vs keeping in place Pain of left wrist 67274 55229 84862 M25.532 Pain of L wrist for several months after golfing, is L handed, sleeps with L wrist flexed, on computer a lot. No nubmess or weakness reported. Normal exam.Quest ion tendon inflammati on-- wear brace at night for a few weeks-- ice 20 min on and off prn- if not improving call for OT appt [id number] Max Hamilton MD , [facility] [place] [address] [place] [address] 12/23/2022 13:55:10 12/23/2022 14:48:29 Adult health examination 016470438 Z00.00 Pap UTD 2020- due 2025due for mammogram and colonoscop y, will schedule.D ishaan rodriguez at the pharmacy.C ontinue to work on healthy diet and increased exercise. Depression screening 171 402162 Z13.31 0/27 depression screening tool administer ed Screening for alcohol abuse 707692622 Z13.39 0/12 Alcohol use screening tool administer ed Essential hypertension 78300406 I10 BP is well controlled on current regimen. Follows with Dr. Jensen- nephrology . Anxiety 89608727 F41.9 Seeing therapist regularly. Worse in the evenings.U ses headspace, which helps.Give n increased anxiety and now more generalize d anxiety as well as hanna-menop ausal symptoms, will try lexapro. Discussed R/B/A of meds and proper use. F/u 4-6 weeks for recheck, sooner with any concerns. Screening for malignant neoplasm of colon 056879242 Z12.11 Screening mammography 24 382657 Z12.31 Renal artery stenosis [address]84151 [address] Jensen. Follows [place] periodical ly. BP controlled on current regimen. Obesity 979595313 E66.9 Continue to work on healthy diet and regular exercise. [id number] Risas Sahni D.O. , [facility] [place] [address] [place] [address] 01/21/2023 08:55:04 01/21/2023 09:34:28 Anxiety 27332141 F41.9 Seeing therapist regularly. Did not tolerate Lexapro well at all. Hold off on further meds at this time. Discussed supplement s. Continue regular therapy. Work on increased exercise.F /u 4-8 weeks, sooner as needed.Use s headspace, which helps as well. Reactive a irway disease 1551714649 06 J45.909 Prior hx of asthma. Increased symptoms this week due to smoke/air quality issues. Albuterol inhaler sent for PRN use. F/u in office if symptoms persist/wo rsen or increasing need for rescue inhaler. [id number] Mynor Rosas MD , [facility] [place] [address] [place] [address] 03/25/2023 08:41:29 03/25/2023 10:04:21 Anxiety 87807143 F41.9 Managing well currently. Seeing therapist regularly. Did not tolerate Lexapro well at all.Contin ue regular therapy and increased exercise.F /u as needed. Benign ess ential hypertension 3810152 I10 Has been well controlled . Typically Rx'd by nephrology , however she is going to be out of meds. Doses confirmed with patient. Refills sent. Has f/u yrly with nephrology - next 11/2023. Renal artery stenosis [address] 0714676 [address]70[address] Jensen. Follows [place] periodical ly. BP controlled on current regimen. [id number] Jac Leyva RN Endoscopy , [facility] [address] [facility] [address] [place] [address] 08/26/2023 08:57:24 08/26/2023 13:04:38 Health Concerns Section Related Observation LastModified by Organization Detai ls LastModified Time None Recorded Concern Status LastModified by Organization Details LastModified Time None Recorded Advance Directives Directive N: given forms 09/23/2011. Payers Encounter Date Sequence Insurance Name Policy Number Policy Jackman Covered Member ID Jackman Member ID Guarantor Name 09/04/2020 1 [facility] [facility] [place] [id number] Alejandro Georges [id number] Kiki Georges 03/25/2021 1 [place] [facility] [place] [place] [id number] Alejandro Horan José Manuel [id number] Kiki Simmons José Manuel 12/23/2022 1 [place] [facility] [place] [id number] Alejandro Horan José Manuel [id number] Kiki Simmons José Manuel 01/21/2023 1 [place]: [facility] [place] [id number] Alejandro Horan José Manuel [id number] Kiki E José Manuel 03/25/2023 1 [place]: [facility] [place] [id number] Alejandro Horan José Manuel [id number] Kiki Simmons José Manuel Notes Date Note Type Note Provider Name and Address Organization Details Recorded Time 1 text/html VMG HypertensionReported bypatient.Context:No ischemic heart disease; No history of CVA; No congestive heart failure; No history of transient ischemic attacks; No peripheral vascular disease; No history of diabetes;Kidney disease; renal artery stenosis Control:Treated with medications; Patient understands medications are to lower blood pressure Compliance:Compliant with medications; Compliant with diet; Compliant with exercise; Compliant with follow-up visits Barriers to CareNo identified barriers to care Self Care:not doing home bp monitoring Time for intake: {{1:52# 1 2 3 4 5 6 7 8 9 10 11 12 13 14 15 16 17 18 19 20 21 22 23 24 25}} minutes. Last saw closing manager in December. Has US done in the summer, stable STates BP is variable, diastolic in the 90s, systolic 127 today typically it is in the 120shad some issues in the summer, but now feels well just started exercising againhas had bout of achilles tendonitis, bilaterallyshe is icing and stretching IUD that needs to be removedMirenawas placed around 5.5 years ago STates her anxiety has been stablesees therapist every 2 weeksmeditatesin past on Paxil which worked well, but no longer on medications Max Hamilton MD [address] [place] [address], [place], [phone], [facility] 09/23/2020 09:46:42 1 text/html Physical Exam/FemaleReported bypatient.PHAPatient is here for a Wellness Visit. She describes her health status as good. Patient's health is the same as last year.Risk Assessment and Lifestyle Change Counseling 18-50Reported bypatient.Coronary Artery Disease Risk Assesment:Family History of Coronary Artery Disease; No personal history of diabetes Breast Cancer Risk Assessment:No family history of breast cancer; No history of breast cancer or dcis Lung Cancer Risk Assessment:Never smoked; No asbestos exposure Cognitive/Behavioral Risk Assessment:Personal history of mental illness;Family history of mental illness Safety Risk Assessment:No evidence of abuse/neglect Diet:Counseled about appropriate portion size; Counseled about eating a diet low in trans and saturated fats and high in fiber, fruits and vegetables; Counseled about decreasing carbohydrates; Discussed the value of a Mediterranean diet, and eating more fruits and vegetables Exercise counseling:Discussed the importance of daily physical activity Safety:Counseled about avoiding excessive and unsafe alcohol intake; An audit alcohol screening was performed and scored. Patient was asked about alcohol use. Advised about risks of alcohol and personal risk was assessed. Patient agreed to plan and given information about available resources if needed. Discussion including screening and scoring greater than 7.5 minutes. Family Planning:Using control IUDVMG HypertensionReported bypatient.Context:No ischemic heart disease; No history of CVA; No congestive heart failure; No history of transient ischemic attacks; No peripheral vascular disease; No history of diabetes;Kidney disease; renal artery stenosis Control:BP Goal less than (140/90); Treated with medications; Patient understands medications are to lower blood pressure Compliance:Compliant with medications; Compliant with diet; Compliant with follow-up visits Barriers to CareNo identified barriers to care Self Care:Using home BP monitor occasionally home BPs range 130-140/85/90 Aggravating factors:counseled to increase activity; counseled to lose weight Associated Symptoms:No chest pain; No shortness of breath; No edema; No fatigue; No palpitations; No decline in exercise capacity; No snoring; cough Lives with husbandhas petsworking from home, goes into office [facility] 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 [address] [place] [address], [phone], [facility] 03/25/2021 15:35:47 3 text/html Physical Exam/FemaleReported bypatient.PHAPatient is here for a Wellness Visit. She describes her health status as good. Patient's health is the same as last year.Risk Assessment and Lifestyle Change Counseling 18-50Reported bypatient.Coronary Artery Disease Risk Assesment:Family History of Coronary Artery Disease; No personal history of diabetes Breast Cancer Risk Assessment:No family history of breast cancer; No history of breast cancer or dcis Lung Cancer Risk Assessment:Never smoked; No asbestos exposure Cognitive/Behavioral Risk Assessment:Personal history of mental illness;Family history of mental illness Safety Risk Assessment:No evidence of abuse/neglect Diet:Counseled about appropriate portion size; Counseled about eating a diet low in trans and saturated fats and high in fiber, fruits and vegetables; Counseled about decreasing carbohydrates; Discussed the value of a Mediterranean diet, and eating more fruits and vegetables Exercise counseling:Discussed the importance of daily physical activity Safety:Counseled about avoiding excessive and unsafe alcohol intake; An audit alcohol screening was performed and scored. Patient was asked about alcohol use. Advised about risks of alcohol and personal risk was assessed. Patient agreed to plan and given information about available resources if needed. Discussion including screening and scoring greater than 7.5 minutes. Family Planning:Using control IUDVMG HypertensionReported bypatient.Context:No ischemic heart disease; No history of CVA; No congestive heart failure; No history of transient ischemic attacks; No peripheral vascular disease; No history of diabetes;Kidney disease; renal artery stenosis Control:BP Goal less than (140/90); Treated with medications; Patient understands medications are to lower blood pressure Compliance:Compliant with medications; Compliant with diet; Compliant with follow-up visits Barriers to CareNo identified barriers to care Self Care:Using home BP monitor occasionally home BPs range 130-140/85/90 Aggravating factors:counseled to increase activity; counseled to lose weight Associated Symptoms:No chest pain; No shortness of breath; No edema; No fatigue; No palpitations; No decline in exercise capacity; No snoring; cough Here today for wellness. Overall doing well. Not monitoring BP regularly at home.Sees Dr. Jensen 1-2 times a year.Following US periodically as well for renal artery stenosis.Had labs doneHas mirena- 6-7 yrs.May want to have it removed. perimenopausal symptoms.Has not had menses with mirena. Diet is fair- 'hit or miss'.No regular exercise. 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 Needs to establish with dentist. Wondering about anxiety- increased symptoms recently. Most days. Also some menopausal symptoms- hot flashes. Wondering about med options.previously used xanax prn anxiety. Max Hamilton MD [address] [place] [address], [phone], [facility] 12/25/2022 14:38:45 3 text/html time for intake: 2 minutes Virtual visit today in follow up for anxiety.Was having increased symptoms.Sees therapist regularly.Started on lexapro at last visit- unable to tolerate it- side effects of dizziness and depression.Tried half dose without improvement. Stopped meds and felt better.Mood has been a bit better.Has been using Akin stress vitamin. That has seemed to help.Wants to hold off on meds for now.Sleep is fair. Thinks that may play a roledecreased energy after work to do exercise. Rissa Sahni D.O. [address] [place] [address], [phone], [facility] 01/21/2023 09:24:45 3 text/html time for intake: 3:22Virtual visit today in follow up for anxiety.Was having increased symptoms.Sees therapist regularly- every other week.Trying to get outside more and walking.Akin stress vitamins seem to be work well for her.Has been getting better sleep.Waking less in the middle of the night.More energy in general. Requesting refill of meds- closing manager typically prescribes- she requested but doesn't seem like they have gone through and is going to be out this week. Mynor Rosas MD [address] [place] [address], [phone], [facility] 03/25/2023 09:55:45 OBGyn Episode No OBEpisode recorded.
--- OUTSIDE RECORDS SUMMARY | 2024-11-29 18:10 | XMS_ITS | Data Portability ---
Author Organization [facility], , [facility], OFFICE Address [address] [place] [address] [place] [address] Care Team Providers Care Stained Glass Artist Name Role Phone [facility] OTHER RAYMOND ADEN Diagnostic Radiologist Unavailab SHONA Robledo Sound Effects Technician Assessment Encounter Date Assessment Date Assessment LastModified [...] positive reflex to HPV subtyping 2020 021 [facility] (Pathology), [address] [facility], [place], [address], 17:15:15 Referral occupation al therapist referral - L wrist pain 2020 021 [email or web address] Not available 15:44:13 Procedures colonoscop y procedure (PROC) [email or web address] [facility], [address] [place], [address], 3 15:20:22 Surgeries None recorded. Imaging MAMMO, screening, tomosynthe sis, bilateral 2022 023 [facility] (Imaging), [address], [place], [address], 4 13:13:35 Medication Orders hydrochlor othiazide 25 mg tablet 2022 023 [facility], [facility], [place], [address], 3 08:57:06 losartan 50 mg tablet 2022 023 [facility], [facility], [place], [address], 3 08:57:04 metoprolol tartrate 25 mg tablet 2022 023 [facility], [facility], [place], [address], 3 08:57:04 albuterol sulfate HFA 90 mcg/actuat ion aerosol inhaler 2022 023 [facility] [address] [place], [address], 3 09:10:34 escitalopr am 10 mg tablet 2022 023 [facility] [address] [place], [address], 3 09:19:27 losartan 100 mg tablet 2020 021 [id number]_ [id number] [id number] [address] [place], [address], 1 09:35:23 Patient TargetsNo targets recorded. Patient Instructions Encounter Date Encounter Id Patient Instructions Last Modified By Organization Details Last Modified Time 03/25/2021 [id number] Well Visit, Ages 18 to 65: Care Instructions [email or web address] Not available 03/25/2021 09:18:18 12/23/2022 [id number] well visit, women 50 to 65: care [...] 136 mmol/ L 133-14 6 Not Available [facility] (Outpatient) [address] [place], [address], 01/16/2021 19:17:52 01/17/20 21 01/16/2021 renal funct ion panel , serum potassium 4.1 mmol/ L 3.3-5. 1 Not Available [facility] (Outpatient) [address] [place], [address], 01/16/2021 19:17:52 01/17/20 21 01/16/2021 renal funct ion panel , serum chloride 99 mmol/ L 96-108 Not Available [facility] (Outpatient) [address] [place], [address], 01/16/2021 19:17:52 01/17/20 21 01/16/2021 renal funct ion panel , serum CO2 26 mmol/ L 21-35 Not Available [facility] (Outpatient) [address] [place], [address], 01/16/2021 19:17:52 01/17/20 21 01/16/2021 renal funct ion panel , serum glucose 85 mg/dL 70-99 Not Available [facility] (Outpatient) [address] [place], [address], 01/16/2021 19:17:52 01/17/20 21 01/16/2021 renal funct ion panel , serum BUN 12 mg/dL 6-19 Not Available [facility] (Outpatient) [address] [place], [address], 01/16/2021 19:17:52 01/17/20 21 01/16/2021 renal funct ion panel , serum creatinine 0.70 mg/dL 0.5-1. 5 Not Available [facility] (Outpatient) [address] [place], [address], 01/16/2021 19:17:52 01/17/20 21 01/16/2021 renal funct ion panel , serum calcium 10.0 mg/dL 8.4-10 .3 Not Available [facility] (Outpatient) [address] [place] [address], [address], 01/16/2021 19:17:52 01/17/20 21 01/16/2021 renal funct ion panel , serum phosphorus 2.9 mg/dL 2.7-4. 5 Not Available [facility] (Out[facility]) [address] [place] [address], [address], 01/16/2021 19:17:52 01/17/20 21 01/16/2021 renal funct ion panel , serum albumin 4.3 g/dL 3.9-4. 8 Not Available [facility] (Out[facility]) [address] [place] [address], [address], 01/16/2021 19:17:52 01/17/20 21 01/16/2021 renal funct ion panel , serum eGFR 102 mL/mi n/1.7 3m2 >59 Estim ated glome rular filtr ation rate calcu lated using the CKD-E PI equat ion. Not Available [facility] (Outpatient) [address] [place] [address], [address], 01/16/2021 19:17:52 01/17/20 21 01/16/2021 renal funct ion panel , serum anion gap 15 mmol/ L 10-20 Not Available [facility] (Out[facility]) [address] [place] [address], [address], 01/16/2021 19:17:52 01/17/20 21 01/16/2021 prote in:cr eatin ine ratio , urine urine total protein 4.2 mg/dL Not Available [facility] (Out[facility]) [address] [place] [address], [address], 01/16/2021 19:28:12 01/17/20 21 01/16/2021 prote in:cr eatin ine ratio , urine urine creatinine 43 mg/dL Not Available [facility] (Outpatient) [address] [place], [address], 01/16/2021 19:28:12 01/17/20 21 01/16/2021 prote in:cr eatin ine ratio , urine urine TP cre ratio 0.10 0-0.19 Not Available [facility] (Out[facility]) [address] [place], [address], 01/16/2021 19:28:12 03/25/20 21 03/28/2021 PAP SMEAR path report [facility] [address] [place] [address] Lab Direc tor: Ave reid MD FINANCIAL ACCOUNTANT Cytol ogy Repor t Acces walter #: [id number] FINAL DIAGN OSIS A. PAP SMEAR (SURE PATH) CE: SPECI MEN ADEQU ACY: Satis facto ry for evalu ation ; trans forma tion zone absen t/ins uffic ient. Evalu ation limit ed by thick ness of cellu lar speci men. INTER PRETA TION: NEGAT ANTHONY FOR INTRA EPITH ELIAL LESIO N OR MALELVIS WILKINS . Elect marimar singh Erin d Out By: Ave reid MD By his/h er signa ture above , the patho logis t liste [...] This HPV test was perfo rmed at [facility], [address] [facility]. This test has been FDA appro efrain for SureP ath cervi fernanda cytol ogy speci mens. The accur acy and preci walter of this test for all other speci men sourc es has been verif ied in the Cytop athol ogy Labor atory of the [facility] and has not been clear ed or appro efrain by the U.S. Food and Drug Admin istra tion. Clini fernanda corre latio n is advis ed. Alda ctron icall y Erin d Out By: Bruna [facility]r [facility])M Cata on 2020 07:15 CLINI FERNANDA HISTO [...] Resul ts to: Paula Oneil hneid er SUBWAY CONDUCTOR Not Available [facility] (Out[facility]) [address], [place], [address], 03/28/2021 17:15:15 11/17/19 23 11/16/2022 CBC WBC 11.72 K/uL 4.00-1 1.00 high Not Available [facility] (Out[facility]) [address] [place], [address], 11/16/2022 19:13:00 11/17/19 23 11/16/2022 CBC RBC 4.95 M/uL 3.72-5 .30 Not Available [facility] (Out[facility]) [address] [place], [address], 11/16/2022 19:13:00 11/17/1911/16/2022 CBC HGB 14.4 g/dL 10.6-1 5.5 Not Available [facility] (Outpatient) [address] [place], [address], 11/16/2022 19:13:00 11/17/19 23 11/16/2022 CBC HCT 42.1 % 32.0-4 5.0 Not Available [facility] (Out[facility]) [address] [place], [address], 11/16/2022 19:13:00 11/17/19 23 11/16/2022 CBC plt 367 K/uL 140-43 0 Not Available [facility] (Out[facility]) [address] [place], [address], 11/16/2022 19:13:00 11/17/1911/16/2022 CBC MCV 85.1 fL 78.0-9 7.0 Not Available [facility] (Out[facility]) [address] [place], [address], 11/16/2022 19:13:00 11/17/19 23 11/16/2022 CBC MCH 29.1 pg 25.0-3 3.0 Not Available [facility] (Out[facility]) [address] [place], [address], 11/16/2022 19:13:00 11/17/19 23 11/16/2022 CBC MCHC 34.2 g/dL 32.0-3 6.0 Not Available [facility] (Out[facility]) [address] [place], [address], 11/16/2022 19:13:00 11/17/19 23 11/16/2022 CBC RDW 13.3 % 11.0-1 6.0 Not Available [facility] (Outpatient) [address] [place], [address], 11/16/2022 19:13:00 11/17/19 23 11/16/2022 CBC MPV 10.4 fL 8.4-12 .8 Not Available [facility] ([facility]) [address] [place], [address], 11/16/2022 19:13:00 11/17/19 23 11/16/2022 RENAL PANEL sodium 136 mmol/ L 133-14 6 Not Available [facility] ([facility]) [address] [place], [address], 11/16/2022 20:18:57 11/17/19 23 11/16/2022 RENAL PANEL potassium 3.6 mmol/ L 3.3-5. 1 Not Available [facility] (Out[facility]) [address] [place], [address], 11/16/2022 20:18:57 11/17/19 23 11/16/2022 RENAL PANEL chloride 100 mmol/ L 96-108 Not Available [facility] (Out[facility]) [address] [place], [address], 11/16/2022 20:18:57 11/17/19 23 11/16/2022 RENAL PANEL CO2 25 mmol/ L 21-35 Not Available [facility] ([facility]) [address] [place], [address], 11/16/2022 20:18:57 11/17/19 23 11/16/2022 RENAL PANEL glucose 90 mg/dL 70-99 Not Available [facility] (Out[facility]) [address] [place], [address], 11/16/2022 20:18:57 11/17/19 23 11/16/2022 RENAL PANEL BUN 13 mg/dL 6-19 Not Available [facility] ([facility]) [address] [place], [address], 11/16/2022 20:18:57 11/17/19 23 11/16/2022 RENAL PANEL creatinine 0.80 mg/dL 0.5-1. 5 Not Available [facility] (Out[facility]) [address] [place], [address], 11/16/2022 20:18:57 11/17/19 23 11/16/2022 RENAL PANEL calcium 9.5 mg/dL 8.4-10 .3 Not Available [facility] (Outpatient) [address] [place], [address], 11/16/2022 20:18:57 11/17/19 23 11/16/2022 RENAL PANEL phosphorus 2.6 mg/dL 2.7-4. 5 low Not Available [facility] (Outpatient) [address] [place], [address], 11/16/2022 20:18:57 11/17/19 23 11/16/2022 RENAL PANEL albumin 4.3 g/dL 3.9-4. 8 Not Available [facility] (Outpatient) [address] [place], [address], 11/16/2022 20:18:57 11/17/19 23 11/16/2022 RENAL PANEL eGFR 90 mL/mi n/1.7 3m2 >59 Estim ated glome rular filtr ation rate calcu lated using the CKD-E PI refit equat ion. Not Available [facility] (Outpatient) [address] [place], [address], 11/16/2022 20:18:57 11/17/19 23 11/16/2022 RENAL PANEL anion gap 15 mmol/ L 10-20 Not Available [facility] (Outpatient) [address] [place], [address], 11/16/2022 20:18:57 11/17/19 23 11/16/2022 TSH TSH 2.15 uIU/m L 0.27-4 .20 Not Available [facility] (Outpatient) [address] [place] [address], [address], 11/16/2022 20:18:58 11/17/19 23 11/16/2022 25-OH VITAM IN D 25 oh vit D (total) 40 NG/mL 30-60 Not Available [facility] (Outpatient) [address] [place] [address], [address], 11/16/2022 20:41:45 Result Notes None recorded. Procedures Surgical History Date Name Laterality Status Provider Name and Address Organization Details Recorded Time Gildardo - Colonoscopy completed Kade Ewing MD [address] [place] [address], [address], [facility] 08/26/2023 10:15:25 Imaging Results None recorded. Procedure Notes None [...] e 50 mcg/actua tion nasal spray,marin pension [place] 1 spray every day by intranas al [...] in AM, 25mg PM per pt 03/25/23 Not Available Not Available Not Available Vitals None Recorded Social History Question Answer Notes LastModified by Organizat ion Details LastModified Time Do You Have An Advance Directive? No Given Forms 09/23/2011. [email or web address] Information not available 06/05/2010 What Is Your Level Of Alcohol Consumption? None Zero Alcohol 03/25/23 [email or web address] Information not available 03/25/2023 What Is Your Level Of Caffeine Consumption? Moderate Cup Of Coffee Daily 12/23/22 [email or web address] Information not available 12/23/2022 How Much Tobacco Do You Chew? None Does [email or web address] Information not available 08/18/2010 What Type Of Diet Are You Following? REGULAR Weight Watchers [email or web address] Information not available 08/18/2010 Which Illicit Or Recreational Drugs Have You Used? 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 No [email or web address] Information not available 12/23/2022 How Many Days In The Past Year Have You Had A Heavy Drinking Consumption (4+ Female, 5+ Male)? 0 [email or web address] Information not available 02/25/2015 Are There Any Guns Present In Your Home? Yes [id number] Information n ot available 07/02/2011 Do You Use Insect Repellent Routinely? No [email or web address] Information not available 12/23/2022 Live Alone Or With Others? With Others [email or web address] Information not available 03/15/2020 Patient Has Health Care Proxy Signed And In Chart No [email or web address] Information not available 09/28/2012 Marital Status In formation not available 07/02/2011 What Was The Date Of Your Most Recent Tobacco Screening? 03/25/2023 03/25/23 SEAN [email or web address] Information not available 03/25/2023 How Many Children Do You Have? 0 Information n ot available 07/02/2011 Do You Use Your Seat Belt Or Car Seat Routinely? Yes [email or web address] Information not available 12/23/2022 Seat Belts Used Routinely Yes Information n ot available 07/02/2011 Are You Sexually Active? Yes Information n ot available 07/02/2011 Smoke Alarm In Home Yes Information n ot available 07/02/2011 Do You Have Smoke And Carbon Monoxide Detectors In Your Home? Yes [email or web address] Information not available 12/23/2022 Are You Passively Exposed To Smoke? No [email or web address] Information not available 12/23/2022 What Types Of Sporting Activities Do You Participate In? Golf Kayaking [email or web address] Information not available 08/18/2010 General Stress Level Medium [email or web address] Information not available 03/15/2020 Do You Use Any Illicit Or Recreational Drugs? No Information not available 12/23/2022 Do You Use Sunscreen Routinely? Yes Information n ot available 07/02/2011 Sex: Unknown Functional Status None recorded. Mental Status None recorded. Family History Relationship Description Onset Age of this Age Resolved Age Notes LastModified by Organization Details LastModified Time Father Hypertensive disorder [email or web address] Not available 02/25 15:54:24 Unspecified Relation Type 1 diabetes mellitus 7 nephew [email or web address] Not available 02/27 16:07:44 Maternal Uncle Malignant tumor of lung non-sm oker Not available 12/23/2022 14:24:35 Notes:Father: glaucoma (trau ma induced), HTN Mother: HTN and hyperlipidemia Medical History Condition Response Asthma Y Migraine Headaches Y Gynecological History Statement/Question Response History of Abnormal Pap N Current Control Method IUD Obstetrics History GPAL:G 0 P 0 0 0 0 Past Encounters Encounter ID Performer Location Encounter Start Date Encounter Closed Date Diagnosis/Indication Diagnosis SNOMED-CT Code Diagnosis ICD10 Code Diagnosis Note [id number] [facility], OFFICE [address] [place] [id number] 09/07/2000 12:00:00 09/05/2008 02:02:29 [id number] [facility], OFFICE [address] [place] [id number] 12/14/2000 17:30:00 09/05/2008 02:02:29 [id number] PH[facility], OFFICE [address] [place] [id number] 05/23/2001 15:00:00 09/05/2008 02:02:29 [id number] [facility], OFFICE [address] [place] [id number] 02/02/2002 15:01:55 09/05/2008 02:02:29 [id number] [facility] [address] [place] [id number] 05/11/2002 11:56:02 09/05/2008 02:02:29 [id number] [facility], OFFICE [address] [place] [id number] 05/11/2002 11:31:22 09/05/2008 02:02:29 [id number] [facility], OFFICE [address] [place] [id number] 02/03/2008 15:55:31 09/05/2008 02:02:29 [id number] [facility], OFFICE [address] [place] [id number] 11/16/2008 09:18:45 11/19/2008 08:21:52 [id number] [facility], OFFICE [address] [place] [address] [place] [id number] 11/30/2008 16:31:32 12/03/2008 09:46:00 [id number] [facility], OFFICE [address] [place] [id number] 01/31/2010 11:23:43 01/31/2010 13:51:35 [id number] [facility], OFF[address] [place] [id number] 04/24/2010 08:56:44 04/24/2010 10:14:09 [id number] [facility], OFFICE [address] [place] [id number] 06/05/2010 09:06:16 06/05/2010 10:17:20 [id number] [facility] OFFICE [address] [place] [address] [place], [place] [id number] 08/18/2010 07:53:06 08/18/2010 10:19:18 [id number] , [address] [place], [place] [id number] 08/28/2010 09:36:33 08/28/2010 11:23:27 [id number] , [address] [place], [place] [id number] 06/10/2011 16:23:06 06/11/2011 08:25:56 [id number] Ember STANISLAW NewmanN , [address] [place] [address] 09/23/2011 15:03:12 09/23/2011 16:08:56 [id number] [facility] , [address] [place] [address] 02/10/2012 15:54:53 02/11/2012 10:54:38 [id number] YURI Garcia, [address] [place], [place] [id number] 10/03/2012 15:03:35 10/03/2012 16:16:50 [id number] , [address] [place] [address] 02/23/2014 15:03:46 02/23/2014 16:06:17 [id number] , [facility], [address] [place], [place] [id number] 02/25/2015 14:45:17 02/25/2015 15:59:09 [id number] [place] Caputo, [address] [place], [place] [id number] 02/18/2016 14:29:26 02/18/2016 15:16:28 [id number] YURI Garcia, [address] [place] [id number] 02/28/2016 15:02:25 02/28/2016 15:48:26 [id number] YURI Garcia, [address] [place] [id number] 03/03/2017 14:54:25 03/04/2017 08:32:09 [id number] Rissa Sahni D.O. FP, [address] [place] [id number] 09/01/2017 10:18:07 09/01/2017 11:00:22 [id number] Rissa Sahni D.O. , [address] [place] [id number] 09/22/2017 10:42:47 09/22/2017 11:28:08 [id number] MD PHYLLIS Olea, [address] [place] [id number] 03/04/2018 15:09:15 03/04/2018 16:12:46 [id number] Mynor Rosas MD [address] [place] [id number] 09/07/2018 15:42:27 09/07/2018 17:08:41 [id number] Rissa Sahni D.O. [address] [place] [id number] 01/23/2019 14:55:55 01/23/2019 17:47:12 [id number] Mynor Rosas MD , [address] [place] [id number] 03/08/2019 16:02:36 03/08/2019 17:12:33 [id number] Maria Esther FERGUSON, [address] [place] [address] 01/25/2020 14:39:57 01/25/2020 16:04:06 [id number] MD PHYLLIS Olea, [address] [place] [id number] 01/31/2020 13:33:18 01/31/2020 14:18:37 [id number] Max Hamilton MD , [address] [place] [id number] 03/15/2020 15:34:23 03/18/2020 16:03:32 [id number] Mireya Porter CMA , [address] [place] [id number] 06/13/2020 07:38:28 06/14/2020 09:27:18 [id number] MD PHYLLIS Olea, [address] [place] [id number] 09/04/2020 09:53:40 09/09/2020 13:37:37 [id number] Maria Esther Heard MD , [facility], OFFICE [address] [place] [place] [id number] 03/25/2021 08:48:12 03/25/2021 09:40:15 [id number] Max Hamilton MD [facility] OFFICE [address] [place] [address] [place] [id number] 12/23/2022 13:55:10 12/23/2022 14:48:29 [id number] Rissa Sahni D.O. , [facility] OFFICE [address] [place] [address] [place] [id number] 01/21/2023 08:55:04 01/21/2023 09:34:28 [id number] Mynor Rosas MD [facility], [address] [place] [id number] 03/25/2023 08:41:29 03/25/2023 10:04:21 [id number] Jac Leyva RN Endoscopy , [address] [place] [address] 08/26/2023 08:57:24 08/26/2023 13:04:38 Health Concerns Section Related Observation LastModified by Organization Detai ls LastModified Time None Recorded Concern Status LastModified by Organization Details LastModified Time None Recorded Advance Directives Directive N: given forms 09/23/2011. Payers Encounter Date Sequence Insurance Name Policy Number Policy Jackman Covered Member ID Jackman Member ID Guarantor Name 09/04/2020 1 [place] [facility] [id number] Alejandro Georges [id number] Kiki Georges 03/25/2021 1 [place] [facility] [id number] Alejandro Georges [id number] Kiki Georges 12/23/2022 1 [place] [facility] [id number] Alejandro Georges [id number] Kiki Georges 01/21/2023 1 [place] [facility] [id number] Alejandro Georges [id number] Kiki Georges 03/25/2023 1 [facility] [id number] Alejandro Georges [id number] Kiki Georges OBGyn Episode No OBEpisode recorded.
--- OUTSIDE RECORDS SUMMARY | 2024-11-29 18:10 | XMS_ITS | Encounter Summary ---
Author Organization [facility] Address [address] [facility] [address] [place] [address] Phone Care Team Providers Care Studio Receptionist Name Role Phone Rissa Sahni DO Primary Care Provider [phone] Reason for Visit * Reason Comments Med Refill Encounter Details Date Type Department Care Team ([facility] st Contact Info) Description 02/07/2022 Refill [facility] [address] [facility] [address] [place] [address] Edmundo Bender MD [address] [facility] [address] [place] [address] Social History Tobacco Use Types Packs/Day Years Used Date Smoking Tobacco: Never Smokeless Tobacco: Never Alcohol Use Standard Drinks/Week Comments No 0 (1 standard drink = 0.6 oz pur e alcohol) Comments Unknown Sex and Gender Information Value Date Recorded Sex Assigned at Not on file Legal Sex Female 4:51 PM EST Gender Identity Not on file Sexual Orientation Not on file documented as of this encounter Plan of Treatment Not on file documented as of this encounter Visit Diagnoses Not on filedocumented in this encounter Care Teams Studio Receptionist Relationship Specialty Start Date End Date Rissa Sahni DO PCP - General 08/26/20 documented as of this encounter
== END 2024-11-29 16:56 | disposition home or self-care (01) ==
LOC: HO.HKA 15:48
PROVIDERS: PCP Internal Medicine; Visit Provider Internal Medicine Nephrology
DX: I70.1 Atherosclerosis of renal artery (principal); I15.0 Renovascular hypertension
CPT/HCPCS: 99214

== ENCOUNTER → 2024-11-29 15:48 | Outpatient (BNVA) | payer BC, SELFPAY | PROVIDERS: PCP Internal Medicine; Visit Provider Internal Medicine Nephrology | DX: Z13.89 Encounter for screening for other disorder (principal) ==